=== PATIENT | female | born 1985 | race Caucasian/White ===

== ENCOUNTER 2024-09-04 08:53 | Outpatient (CLI) | payer MEDICAID, SELFPAY ==
--- NOTE | 2024-09-04 08:57 | CT_ITS ---
APPROVED REPORT Clinical Manager Home Care: CLINICAL INDICATION Chest Pain TECHNIQUE Image Acquisition: A 128 slice MDCT scanner (Cimetrixa View) was used for data acquisition. A noncontrast coronary calcium scan was performed. A CT attenuation threshold of 130 Hounsfield units (HU) was used for the detection of calcium in contiguous voxels of 1 sq mm in area to be counted as individual lesions. Bolus tracking in the ascending aorta with a threshold of 180 HU was performed. Immediately afterwards, ECG synchronized cardiac CT was then performed from the cardiac base to apex using retrospective gating with ECG tube current modulation. A total of 85 mL of Isovue 370 mg/mL contrast medium was administered at 5 mL/sec followed by a saline flush using a biphasic injection protocol. A tube voltage of 120 KVp was used. The patient received the following medications prior to the cardiac CT. 150 mg of oral metoprolol 15 mg of oral ivabradine 0.4 mg of sublingual nitroglycerin The average heart rate at the time of acquisition was 58 bpm and regular. Image Reconstruction Transaxial images were reconstructed at 0.67 mm slide thickness. Data was reviewed interactively on an advanced workstation capable of 2 and 3-dimensional displays in all conventional reconstruction formats, including multiplanar reformations, maximum intensity projections, curved multiplanar reformations, and volume rendered reconstructions. When applicable, selected routine images describing the relevant coronary anatomy and pathology were saved and sent to PACS. Complications None Technical Quality Overall image quality was good. Coronary artery opacification was adequate. Total DLP (Dose-Length Product) is 1225.4 mGy-cm. The reported value represents the total of one or more individual components during the CT acquisition of this date and at this time, and as such, the same value may appear in more than one CT report depending on the interpreting/reporting physicians. COMPARISON None FINDINGS CT Coronary Calcium Scoring LMA (Left Main Artery) = 0 LAD (Left Anterior Descending) = 0 LCX (Left Coronary Circumflex) = 0 RCA (Right Coronary Artery) = 0 Total Calcium Score = 0 using the AJ-130 method. The interpretation of the calcium heart score is based on the following continuum*: 0 = no calcified plaque detected (risk of coronary artery disease is very low ??? less than 5%) 1-10 = calcium detected in extremely minimal levels (risk of coronary diseases is still low ??? less than 10%) 11-100 = mild levels of plaque detected with certainty (mild or minimal narrowing of heart arteries is likely) 101-400 = definite,at least moderate levels of plaque detected (relatively high risk of a heart attack within 3-5 years) >401-999 = extensive levels of plaque detected (high risk of heart attack, high levels of vascular disease are present, high likelihood of at least one significant coronary narrowing) *The calcium heart score quantifies the burden of coronary calcification/plaque in the coronary arteries. The calcium heart score is not able to evaluate the presence or burden of non-calcified (i.e. soft) plaque. There is no identifiable calcification in the aortic valve, mitral annulus or mitral valve, pericardium, or myocardium. Coronary CT Angiography The coronary arterial system is right dominant. Quantitative Stenosis Grading: Left Main (LM): The left main originates normally from the left sinus of Valsalva. The LM bifurcates into the left anterior descending artery and left circumflex artery. The LM is patent with no evidence of atherosclerosis. Left Anterior Descending (LAD) and Diagonal Branches: The LAD gives off 3 diagonal branch(es). The LAD and its branches are patent with no evidence of atherosclerosis. 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 Left Circumflex (LCX) and Obtuse Marginals (OM): The LCX gives off 1 Obtuse Marginal (OM) branch(es). The LCX and its branches are patent with no evidence of atherosclerosis. Right Coronary Artery (RCA): The RCA originates normally from the right sinus of Valsalva. The RCA gives off a posterior descending artery (PDA) and posterolateral (PL) branches. The RCA and its branches are patent with no evidence of atherosclerosis. Non-Coronary Cardiac Findings: Analysis of the left ventricular (LV) structure and function was performed after 3-D reconstruction of the LV from axial images, with user-corrected automatic contouring for assessment of LV volumes and user-defined reconstruction from oblique planes for measurement of 3-D cardiac structure and function. -The left ventricle systolic function is low-normal. -There is no left atrial appendage filling defect. Two right pulmonary veins and two left pulmonary veins drain normally into the left atrium. -No pericardial thickening or calcification. -Central and branch pulmonary arteries in the [id number]-gu-[id number] are unremarkable. -Thoracic aorta within the visualized thoracic aortic-branches in the [id number]-gp-bvsh is unremarkable. Extracardiac Structures No significant extra-cardiac findings. Note, however, that this study is focused on the cardiac findings. IMPRESSION -Absence of coronary calcification with an Agatston score = 0 using the AJ-130 method. -No evidence of significant flow-limiting atherosclerosis of the coronary arteries. -Mid LAD myocardial bridge present, measuring approximately 2 cm in length and 1.5 cm in depth. -CAD-RADS 0. Management recommendations per ACC/AHA guidelines*, as clinically appropriate. - Low-normal LV systolic function on CCTA. Correlation with new or recent TTE is suggested. *Recommendations: CAD RADS 0: Reassurance. Consider non-atherosclerotic causes of chest pain. CAD RADS 1: Consider non-atherosclerotic causes of chest pain. Consider preventive therapy and risk factor modification. CAD RADS 2: Consider non-atherosclerotic causes of chest pain. Consider preventive therapy and risk factor modification, particularly for patients with nonobstructive plaque in multiple segments. CAD RADS 3: Consider further functional testing. Consider symptom-guided anti-ischemic and preventive pharmacotherapy as well as risk factor modification per published guideline statements. CAD RADS 4A: Consider further functional testing or invasive coronary angiography with revascularization per published guideline statements. Consider symptom-guided anti-ischemic and preventive pharmacotherapy as well as risk factor modification per published guideline statements. CAD RADS 4B: Invasive coronary angiography recommended with revascularization per published guideline statements. Consider symptom-guided anti-ischemic and preventive pharmacotherapy as well as risk factor modification per published guideline statements. CAD RADS 5: Consider invasive angiography and/or viability assessment with revascularization per published guideline statements. Consider symptom-guided anti-ischemic and preventive pharmacotherapy as well as risk factor modification per published guideline statements. CRITICAL RESULT None COMMUNICATION Per this written report The coronary and cardiac findings of this CCTA were reviewed, reported, and signed by Tushar Archuleta MD (Rheumatology Nurse) Conclusion Electronically signed by : Geneva Archuleta MD 09/04/2024 13:11:59
--- OUTSIDE RECORDS SUMMARY | 2024-09-04 08:57 | XMS_ITS | Data Portability ---
Author Organization [place] - [facility] - [facility] Address [address] [place] [address] Assessment Encounter Date Assessment Date Assessment LastModified by Organization Details LastModified Time 11/14/2023 11/14/2023 Patient Education was printed, I have reviewed the Past Medical, Family, and Social Histories along with ROS and all orders in today's record, and have noted any changes. Medications, charts and records reviewed in full today. - EKG today reveals sinus rhythm with a rate of 74 beats per minute, nonspecific T-wave abnormality, incomplete right bundle-branch block, abnormal EKG. Blood pressure 100/68, heart rate 86, weight 127.6 lb. Oxygen saturation 99% on room air. - LAST ECHO: 09/2021 revealed normal LVEF of 55% to 60%. Mild mitral insufficiency. Xjuz-dg-ndisqosf pulmonic insufficiency. LAST HEART CATH: 04/2012 revealed normal coronary arteries, normal LV systolic function, normal LVEDP. - Plan: Defer laboratory studies to PCP. Refills sent to pharmacy. Echocardiogram. Follow-up in 3 to 4 months. - -Continue other current medications. -Continue aggressive risk factor modification. -Recommend LDL less than 100. -Encouraged regular exercise and activity. - This note was dictated using [employer] software. If something is unclear, or does not make sense, please do not hesitate to contact our office at [phone] for clarification. Not available 11/14/2023 18:12:01 02/14/2024 02/14/2024 Patient Education was printed, I have reviewed the Past Medical, Family, and Social Histories along with ROS and all orders in today's record, and have noted any changes. Medications, charts and records reviewed in full today. - blood pressure 110/70, heart rate 77, weight 123.4 lb. Oxygen saturation 99% on room air. - LAST ECHO: 11/2023 revealed an LVEF of 60% with Mild MR. Mild LV chamber dilitation. PAST ECHO: 09/2021 revealed normal LVEF of 55% to 60%. Mild mitral insufficiency. Mwpi-so-zeetzdra pulmonic insufficiency. LAST HEART CATH: 04/2012 revealed normal coronary arteries, normal LV systolic function, normal LVEDP. - Plan: Laboratory studies. EKG at follow-up. Follow-up in six months. - -Continue other current medications. -Continue aggressive risk factor modification. -Recommend LDL less than 100. -Encouraged regular exercise and activity. - This note was dictated using [employer] software. If something is unclear, or does not make sense, please do not hesitate to contact our office at [phone] for clarification. Not available 02/14/2024 16:38:17 08/20/2024 08/20/2024 Patient Education was printed, I have reviewed the Past Medical, Family, and Social Histories along with ROS and all orders in today's record, and have noted any changes. Medications, charts and records reviewed in full today. - blood pressure 116/64, heart rate 69, weight 136.2 lb. Oxygen saturation is 99% on room air. EKG today reveals sinus rhythm with a rate of 69 beats per minute, nonspecific T-wave abnormality, poor R-wave progression, right atrial enlargement, abnormal EKG. - LAST ECHO: 11/2023 revealed an LVEF of 60% with Mild MR. Mild LV chamber dilitation. PAST ECHO: 09/2021 revealed normal LVEF of 55% to 60%. Mild mitral insufficiency. Ejot-ki-jgdnkkgl pulmonic insufficiency. LAST HEART CATH: 04/2012 revealed normal coronary arteries, normal LV systolic function, normal LVEDP. - Plan: Laboratory studies. Chest x-ray. CTA coronary arteries. Refill furosemide. Follow-up in 6 to 8 weeks. - Tobacco cessation and counseling provided today, total time 5 minutes. The patient has current tobacco dependence. Discussed health ramifications of tobacco use, including increases in risk of all-cause morbidity and mortality. Recommend tobacco cessation. The patient is willing to attempt tobacco cessation. Discussed nicotine replacement therapy, varenicline, and bupropion including risks, benefits, alternatives, and potential side effects. Discussed the benefits of tobacco cessation including reduced morbidity and mortality. Recommend setting a quit date. - -Continue other current medications. -Continue aggressive risk factor modification. -Recommend LDL less than 100. -Encouraged regular exercise and activity. - This note was dictated using [employer] software. If something is unclear, or does not make sense, please do not hesitate to contact our office at [phone] for clarification. Not available 08/20/2024 12:00:18 09/02/2024 09/02/2024 Patient Education was printed, I have reviewed the Past Medical, Family, and Social Histories along with ROS and all orders in today's record, and have noted any changes. Medications, charts and records reviewed in full today. - EKG today reveals sinus rhythm with a rate of 86 beats per minute, incomplete right bundle-branch block, nonspecific T-wave abnormality, poor R-wave progression, right atrial enlargement, abnormal EKG. Blood pressure 118/78, heart rate is 86, weight 130.8 lb. Oxygen saturation 99% on room air. Weight is down 6 lb since last visit. - LAST ECHO: 11/2023 revealed an LVEF of 60% with Mild MR. Mild LV chamber dilitation. PAST ECHO: 09/2021 revealed normal LVEF of 55% to 60%. Mild mitral insufficiency. Cuaz-uc-vkhidngy pulmonic insufficiency. LAST HEART CATH: 04/2012 revealed normal coronary arteries, normal LV systolic function, normal LVEDP. - Plan: Nitroglycerin, safety education provided. CTA coronary arteries. Follow-up in 4 to 5 weeks. - -Continue other current medications. -Continue aggressive risk factor modification. -Recommend LDL less than 100. -Encouraged regular exercise and activity. - This note was dictated using [employer] software. If something is unclear, or does not make sense, please do not hesitate to contact our office at [phone] for clarification. Not available 09/02/2024 13:13:28 Plan of Treatment Reminders Order Date Submit Date Provider Last Modified By Organization Details Last Modified Time Details Appointments OV EST 30 2024 11:00A M LEONARDO YEUNG, SALES ANALYTICS MANAGER, S Not available Not available Not available OV EST 30 2024 10:30A M LEONARDO YEUNG NP, S Not available Not available Not available Lab CBC w/ auto diff 2024 025 [facility] (Registration ), [address], [place], [address], 08/22/2024 10:59:06 CMP, serum or plasma 2024 025 [facility] (Registration ), [address], [place], [address], 08/22/2024 11:41:11 magnesium , serum or plasma 2024 025 [facility] (Registration ), [address], [place], [address], 08/22/2024 11:41:13 lipid panel w/ direct LDL, serum [address] (Registration ), [address], [place], [address], 08/27/2024 08:14:04 CBC w/ auto diff [address] (Registration ), [place], [address], 02/21/2024 08:18:16 BMP, serum or plasma [address] (Registration ), [place], [address], 02/21/2024 08:18:25 magnesium , serum or plasma [address] (Registration ), [place], [address], 02/21/2024 08:18:34 Referral None recorded. Procedures None recorded. Surgeries None recorded. Imaging CT, angiogram , coronary arteries, w/wo contrast 2024 025 [facility] (Scheduling), [address], [place], [address], 09/02/2024 13:30:34 electroca rdiogram 2024 025 [email or web address], [address] [place] [address] [address], [place], [address], 09/02/2024 13:12:35 CT, angiogram , coronary arteries, w/wo contrast - Patient doesnt have insurance . Patient is self pay [address] (Scheduling), [address], [place], [address], 08/27/2024 08:13:56 electroca [facility]diogram 2024 [facility]25 [email or web address], [address] [place] [address] [address], [place], [address], 08/20/2024 11:49:36 XR, chest, 2 view [address] (Registration ), [facility] [address], [place], [address], 09/03/2024 07:41:32 electroca rdiogram 2023 024 [email or web address], [address] [place] [address] [address], [place], [address], 11/14/2023 16:30:00 US, echocardi ogram, transthor acic, complete, w/ color flow [email or web address] (Centralized Scheduling), [address] , [place], [address], 11/28/2023 10:40:04 Medication Orders nitroglyc oswald 0.4 mg sublingua l tablet [address] [facility] [place] [id number], [address] , [place], [address], 09/02/2024 13:12:39 furosemid e 20 mg tablet 2024 025 [email or web address] [id number], [address] , [place], [address], 08/20/2024 11:49:52 Kenalog 10 mg/mL suspensio n for injection [address] [id number], [address] [place] [address] , [place], [address], 04/04/2024 08:59:30 bupivacai ne HCl 0.5 % (5 mg/mL) injection solution [address] [id number], [address] [place] [address] , [place], [address], 04/04/2024 08:59:30 hydroxyzi ne HCl 25 mg tablet 2023 024 [facility] [id number], [address] [place] [address] , [place], [address], 11/14/2023 18:10:06 furosemid e 20 mg tablet [address] [facility] [place] [id number], [address] [place] [address] , [place], [address], 11/14/2023 18:09:12 Patient TargetsNo targets recorded. Patient Instructions Encounter Date Encounter Id Patient Instructions Last Modified By Organization Details Last Modified Time 08/20/2024 [id number] smoking cessatio n counseling, greater than 3 minutes up to 10 minutes* [email or web address] Not available 08/27/2024 08:14:11 Reason for Referral None Reported. Results Created Date Observation Date Name Description Value Unit Range Abnormal Flag Note LastModifiedBy Organization Detail LastModifiedTime 08/23/1908/22/2024 CBC W/AUT O DIFFE RENTI AL note SEE NOTE Order ing Provi fuentes: Toi Gonzalez is RESEARCH MANAGEMENT ASSOCIATE Not Available [address] , [place], [address], 08/22/2024 10:59:06 08/23/19 25 08/22/2024 CBC W/AUT O DIFFE RENTI AL white blood cell 7.9 10e3/ uL 4.5-13 .0 normal Not Available [place] [address], [place], [address], 08/22/2024 10:59:06 08/23/19 25 08/22/2024 CBC W/AUT O DIFFE RENTI AL red blood cell 4.59 10e6/ uL 3.80-5 .10 normal Not Available [place] [address], [place], [address], 08/22/2024 10:59:06 08/23/19 25 08/22/2024 CBC W/AUT O DIFFE RENTI AL hemoglobin 13.1 g/dL 11.5-1 5.3 normal Not Available [place] [address], [place], [address], 08/22/2024 10:59:06 08/23/19 25 08/22/2024 CBC W/AUT O DIFFE RENTI AL hematocrit 39.2 % 34.0-4 6.0 normal Not Available [address], [place], [address], 08/22/2024 10:59:06 08/23/19 25 08/22/2024 CBC W/AUT O DIFFE RENTI AL mean cell volume 85 fL 78.0-9 8.0 normal Not Available [address] [place], [place], [address], 08/22/2024 10:59:06 08/23/19 25 08/22/2024 CBC W/AUT O DIFFE RENTI AL mean cell HGB 28.5 pg 25.0-3 5.0 normal Not Available [address] [place], [place], [address], 08/22/2024 10:59:06 08/23/19 25 08/22/2024 CBC W/AUT O DIFFE RENTI AL mean cell HGB concentratio n 33.4 g/dL 31.0-3 6.0 normal Not Available [address] [place], [place], [address], 08/22/2024 10:59:06 08/23/19 25 08/22/2024 CBC W/AUT O DIFFE RENTI AL red cell distribution width 13.7 % 11.0-1 5.0 normal Not Available [address] [place], [place], [address], 08/22/2024 10:59:06 08/23/19 25 08/22/2024 CBC W/AUT O DIFFE RENTI AL platelet count 244 10e3/ uL 150-40 0 normal Not Available [place] [address], [place], [address], 08/22/2024 10:59:06 08/23/19 25 08/22/2024 CBC W/AUT O DIFFE RENTI AL immature granulocyte % 0 0-1 normal Not Available [place] [address], [place], [address], 08/22/2024 10:59:06 08/23/19 25 08/22/2024 CBC W/AUT O DIFFE RENTI AL neutrophil % 67 % 35-75 normal Not Available [address] [place], [place], [address], 08/22/2024 10:59:06 08/23/19 25 08/22/2024 CBC W/AUT O DIFFE RENTI AL lymphocyte % 23 % 10-50 normal Not Available [address] , [place], [address], 08/22/2024 10:59:06 08/23/19 25 08/22/2024 CBC W/AUT O DIFFE RENTI AL monocyte % 7 % 0-15 normal Not Available [address] [place], [place], [address], 08/22/2024 10:59:06 08/23/19 25 08/22/2024 CBC W/AUT O DIFFE RENTI AL eosinophil % 2 % 0-5 normal Not Available [address] [place], [place], [address], 08/22/2024 10:59:06 08/23/19 25 08/22/2024 CBC W/AUT O DIFFE RENTI AL basophil % 1 % 0-5 normal Not Available [place] [address], [place], [address], 08/22/2024 10:59:06 08/23/19 25 08/22/2024 CBC W/AUT O DIFFE RENTI AL immature granulocyte # 0.01 x1000 /uL 0-0.05 normal Not Available [address] [place], [place], [address], 08/22/2024 10:59:06 08/23/19 25 08/22/2024 CBC W/AUT O DIFFE RENTI AL neutrophil # 5.30 x1000 /uL 1.50-8 .00 normal Not Available [address] [place], [place], [address], 08/22/2024 10:59:06 08/23/19 25 08/22/2024 CBC W/AUT O DIFFE RENTI AL lymphocyte # 1.81 x1000 /uL 1.20-5 .20 normal Not Available [address] [place], [place], [address], 08/22/2024 10:59:06 08/23/19 25 08/22/2024 CBC W/AUT O DIFFE RENTI AL monocyte # 0.54 x1000 /uL 0.40-0 .90 normal Not Available [place] [address], [place], [address], 08/22/2024 10:59:06 08/23/19 25 08/22/2024 CBC W/AUT O DIFFE RENTI AL eosinophil # 0.18 x1000 /uL 0.00-0 .50 normal Not Available [place] [address], [place], [address], 08/22/2024 10:59:06 08/23/19 25 08/22/2024 CBC W/AUT O DIFFE RENTI AL basophil # 0.08 x1000 /uL 0.00-0 .30 normal Not Available [place] [address], [place], [address], 08/22/2024 10:59:06 08/23/19 25 08/22/2024 CBC W/AUT O DIFFE RENTI AL NRBC automated 0.0 /100_ WBC Not Available [address] [place], [place], [address], 08/22/2024 10:59:06 08/23/19 25 08/22/2024 CBC W/AUT O DIFFE RENTI AL performing lab SEE NOTE ML - [facility] R [address] [facility] [address] Not Available [place] [address], [place], [address], 08/22/2024 10:59:06 08/23/19 25 08/22/2024 COMP METAB OLIC PANEL note SEE NOTE Order ing Provi fuentes: Toi Gonzalez is RESEARCH MANAGEMENT ASSOCIATE Not Available [address] [place], [place], [address], 08/22/2024 11:41:11 08/23/19 25 08/22/2024 COMP METAB OLIC PANEL sodium 136 mmol/ L 136-14 5 normal Not Available [address] [place], [place], [address], 08/22/2024 11:41:11 08/23/19 25 08/22/2024 COMP METAB OLIC PANEL potassium 4.1 mmol/ L 3.5-5. 1 normal Not Available [place] [address], [place], [address], 08/22/2024 11:41:11 08/23/19 25 08/22/2024 COMP METAB OLIC PANEL chloride 103 mmol/ L 98-107 normal Not Available [place] [address], [place], [address], 08/22/2024 11:41:11 08/23/19 25 08/22/2024 COMP METAB OLIC PANEL carbon dioxide 27 mmol/ L 24-33 normal Not Available [place] [address], [place], [address], 08/22/2024 11:41:11 08/23/19 25 08/22/2024 COMP METAB OLIC PANEL anion gap 10.1 mmol/ L 10-20 normal Not Available [address] [place], [place], [address], 08/22/2024 11:41:11 08/23/19 25 08/22/2024 COMP METAB OLIC PANEL glucose 103 mg/dL 70-99 high Not Available [address] [place], [place], [address], 08/22/2024 11:41:11 08/23/19 25 08/22/2024 COMP METAB OLIC PANEL blood urea nitrogen 11 mg/dL 7-18 normal Not Available [address] [place], [address], 08/22/2024 11:41:11 08/23/19 25 08/22/2024 COMP METAB OLIC PANEL creatinine 0.70 mg/dL 0.55-1 .02 normal Not Available [address] [place], [address], 08/22/2024 11:41:11 08/23/1908/22/2024 COMP METAB OLIC PANEL GFR (estimated) 114 mL/mi n >60 normal [IM JOSE NT]: The 2020 CKD-E PI equat ion is now the recom imtiaz d stand dwayne. This versi on does not inclu de race, as do the 2008 and 2011 CKD-E PI creat inine and creat inine -cyst atin C equat ions. Plebeck e note that the eGFR now repor ugo is gener ated by the new 2020 CKD-E PI equat ion, which decre ases the eGFR for black s by up to 10% and incre ases the eGFR for non-b lacks by up to 10% in monae rison to the old equat ion. To monae re a legac y eGFR to a curre nt value , a 2009 CKD-E PI calcu lator is easil y searc hable on the inter net. Calcu lated GFR: This calcu lated GFR is advoc ated by the Natio nal Kidne y Found ation to be used as an indic ator of Chron ic Kidne y Disea se (CKD) . 5 Stage s of Chron ic Kidne y Disea se. Stage 1 90 mL/mi n or more Healt hy kidne ys or Kidne y damag e with bella l or high GFR detai ls Stage 2 60 to 89 mL/mi n Kidne y damag e and mild decre ase in GFR detai ls Stage 3 30 to 59 mL/mi n Moder ate decre ase in GFR detai ls Stage 4 15 to 29 mL/mi n Sever e decre ase in GFR detai ls Stage 5 Less than 15 mL/mi n On dialy sis or Kidne y failu re Patie nt's clini ryan statu s must be consi dered for the care of your patie nt. Not Available [address] , [place], [address], 08/22/2024 11:41:11 08/23/19 25 08/22/2024 COMP METAB OLIC PANEL BUN/creatini ne ratio 15 12-20 normal Not Available [address] , [place], [address], 08/22/2024 11:41:11 08/23/19 25 08/22/2024 COMP METAB OLIC PANEL total protein 7.0 g/dL 6.4-8. 2 normal Not Available [address] [place], [place], [address], 08/22/2024 11:41:11 08/23/19 25 08/22/2024 COMP METAB OLIC PANEL albumin 4.2 g/dL 3.4-5. 0 normal Not Available [address] , [place], [address], 08/22/2024 11:41:11 08/23/19 25 08/22/2024 COMP METAB OLIC PANEL globulin 2.8 g/dL 1.5-4. 0 normal Not Available [address] [place], [place], [address], 08/22/2024 11:41:11 08/23/19 25 08/22/2024 COMP METAB OLIC PANEL albumin/glob ulin ratio 1.5 0.5-2. 0 normal Not Available [address] , [place], [address], 08/22/2024 11:41:11 08/23/19 25 08/22/2024 COMP METAB OLIC PANEL calcium 9.3 mg/dL 8.5-10 .1 normal Not Available [address] , [place], [address], 08/22/2024 11:41:11 08/23/19 25 08/22/2024 COMP METAB OLIC PANEL osmolality serum calculated 270 mOsm/ kg 272-28 8 low Not Available [address] , [place], [address], 08/22/2024 11:41:11 08/23/1908/22/2024 COMP METAB OLIC PANEL bilirubin total 0.7 mg/dL 0.2-1. 0 normal Use of this assay is not recom imtiaz d for patie nts under going treat ment with Eltro mbopa g due to the poten tial for false ly eleva ugo resul ts. Not Available [address] , [place], [address], 08/22/2024 11:41:11 08/23/1908/22/2024 COMP METAB OLIC PANEL SGOT/AST 18 U/L 15-37 normal Not Available [address] , [place], [address], 08/22/2024 11:41:11 08/23/19 25 08/22/2024 COMP METAB OLIC PANEL SGPT/ALT 23 U/L 14-59 normal Not Available [address] [place], [address], 08/22/2024 11:41:11 08/23/19 25 08/22/2024 COMP METAB OLIC PANEL alkaline phosphatase total 70 U/L 46-116 normal Not Available [address] , [place], [address], 08/22/2024 11:41:11 08/23/1908/22/2024 COMP METAB OLIC PANEL performing lab SEE NOTE ML - [facility] [address] [facility] [address] Not Available [address] , [place], [address], 08/22/2024 11:41:11 08/23/1908/22/2024 LIPID PANEL note SEE NOTE Order ing Provi fuentes: Toi Gonzalez is RESEARCH MANAGEMENT ASSOCIATE Not Available [address] , [place], [address], 08/22/2024 11:41:12 08/23/1908/22/2024 LIPID PANEL triglyceride s 59 mg/dL < 150 normal Natio nal Marcela stero l Educa tion Progr am (NCEP ) Guide lines : Bella l < 150 mg/dL Borde rline 150 - 199 mg/dL High 200 - 499 mg/dL Very High >or= 500 mg/dL Not Available [address] , [place], [address], 08/22/2024 11:41:12 08/23/1908/22/2024 LIPID PANEL cholesterol 166 mg/dL < 200 normal Natio nal Marcela stero l Educa tion Progr am (NCEP ) Guide lines : July able < 200 mg/dL Borde rline Risk 200 - 239 mg/dL High Risk >or= 240 mg/dL Not Available [address] , [place], [address], 08/22/2024 11:41:12 08/23/1908/22/2024 LIPID PANEL HDL cholesterol 50 mg/dL > 60 low Natio nal Marcela stero l Educa tion Progr am Adult Treat ment Panel III (NCEP -ATP III) Guide lines : < 40 mg/dl : Low HDL-C holes terol >or= 60 mg/dl : High HDL-C holes terol Not Available [address] , [place], [address], 08/22/2024 11:41:12 08/23/1908/22/2024 LIPID PANEL LDL cholesterol 104 mg/dL < 100 high Natio nal Marcela stero l Educa tion Progr am (NCEP ) Guide lines : Optim al < 100 mg/dL Near/ Above Optim al 100 - 129 mg/dL Borde rline High 130 - 159 mg/dL High 160 - 189 mg/dL Very High >or= 190 mg/dL Not Available [address] , [place], [address], 08/22/2024 11:41:12 08/23/1908/22/2024 LIPID PANEL performing lab SEE NOTE [facility] [address] [facility] [address] Not Available [address] [place], [place], [address], 08/22/2024 11:41:12 08/23/1908/22/2024 MAGNE SIUM note SEE NOTE Order ing Provi fuentes: Toi Gonzalez is RESEARCH MANAGEMENT ASSOCIATE Not Available [address] [place], [place], [address], 08/22/2024 11:41:13 08/23/1908/22/2024 MAGNE SIUM magnesium 1.9 mg/dL 1.8-2. 4 normal Not Available [address] , [place], [address], 08/22/2024 11:41:13 08/23/1908/22/2024 MAGNE SIUM performing lab SEE NOTE ML - [facility] R [address] [facility] [place] [address] Not Available [address] [place], [place], [address], 08/22/2024 11:41:13 06/03/20 24 XR, finge r(s) No observ ation record ed. CARYN Headley [facility] [address] [facility] [address] , [place], [address], 10/16/2023 08:42:41 11/14/19 24 11/14/2023 elect rocar diogr am No observ ation record ed. CARYN Headley [address], [place], [address], 11/14/2023 14:49:25 11/14/19 24 elect rocar diogr am No observ ation record ed. [email or web address] Not Available 2023 15:41:10 12/05/19 24 12/05/2023 elect rocar diogr am No observ ation record ed. [email or web address] Not Available 2023 15:24:02 12/11/19 24 12/11/2023 - ECHO w/spe c/col or flow [place] [facility] Name: [facility]EV[facility] Phys: Zuly CULLEN, [place] [address] : 1985 Age: 38 Sex: F Acct: [id number] Loc: RAD[facility] PHONE #: Exam Date: 2023 Status : DEP CLI FAX #: Rad# [id number] Unit# [id number] Admit Date: 2023 EXAMS: CPT CODE: [id number] ECHO W/SPEC /COLOR FLOW [id number] Reason for study: Dyspne a Left ventri cular diasto le: 5.7 Left ventri cular systol e: 3.8 Septal wall thickn ess: 0.7 Family And Marriage Counsellor ior wall thickn ess: 0.9 Right ventri cular diasto le: 0.8 Left Atrium : 2.7 Aortic root: 2.4 TR veloci ty: 2.33 m/s Impres toshia: 1. Mild left ventri cular chambe r dilata tion with normal left ventri cular systol ic functi on. Estima ugo ejecti on fracti on is 60% 2. No segmen miroslava wall motion abnorm alitie s 3. Normal left atrial and right atrial size 4. Normal right ventri cular size and functi on 5. Normal mitral valve, with mild thicke livan of the mitral valve leafle ts. There is normal mitral valve leafle t mobili ty and functi on. There is mild mitral insuff icienc y 6. Normal aortic valve with no aortic insuff icienc y 7. No perica rdial effusi on 8. Normal aortic root 9. Normal tricus pid valve, with mild tricus pid insuff icienc y. Tricus pid regurg itant jet veloci ty is 2.33 m/s implyi ng a right ventri cular systol ic pressu re of approx imatel y 33 mmHg 10. Pulmon ic valve not well visual ized. There does appear to be mild to modera te pulmon ic insuff icienc y Electr onical ly Signed by DIANA CARUSO MD on 2023 at 1303 Report ed and signed by: DIANA CARUSO MD PAGE 1 Signed Report (AMY NUED) [facility] Name: KENDRA LEVINE [address] [place], [place] [address]a [email or web address] Phys: Zuly CULLEN, [place] [address] : 1985 Age: 38 Sex: F Acct: [id number] Loc: [place] PHONE #: Exam Date: 2023 Status : DEP CLI FAX #: Rad# [id number] Unit# [id number] Admit Date: 2023 EXAMS: CPT CODE: [id number] ECHO W/SPEC /COLOR FLOW [id number] CC: Diana Caruso MD; NO PRIMAR Y CARE PHYSIC IZABELA Dictat ed Date/T smita: 2023 (1303) Techno logist : WES ESPINO Transc ribed Date/T smita: 2023 (1303) Transc riptio nist: DR.LOH BECKI leonardo Signat ure Date/T smita: 2023 (9713) Printe d Date/T smita: 2023 (7826) BATCH NO: N/A PAGE 2 Signed Report CC'ed Logic: Orderi ng Provid er: ZULY ORTIZ Attend ing Provid er: ZULY ORTIZ Referr ing Provid er: ZULY ORTIZ Consul ting Provid er: PHYSIC IZABELA NO [email or web address] , [place], [address], 02/14/2024 12:01:01 08/21/19 elect rocar diogr am No observ ation record ed. [email or web address] [address], [place], [address], 08/20/2024 11:48:35 08/21/19 25 08/20/2024 elect rocar diogr am No observ ation record ed. [email or web address] Not Available 2024 11:35:25 09/03/19 25 elect rocar diogr am No observ ation record ed. CARYN [address], [place], [address], 09/02/2024 11:18:03 09/03/19 25 09/02/2024 elect rocar diogr am No observ ation record ed. [email or web address] Not Available 2024 13:16:42 Result Notes None recorded. Problems Name Problem SNOMED Code Status Onset Date Resolution Date Notes Provider Name and Address Organization Details Recorded Time Mitral valve regurgitation 99174704 Active 2023 LEONARDO YEUNG NP, S [facility],[address], [place], [address], [facility] - [place] [facility] [place] 4 12:04:36 Pulmonic valve regurgitation 89403104 Active 2023 LEONARDO YEUNG NP, S [address] [place] [address],[address], [place], [address], [facility] - [facility] - [place] [facility] [place] 12:04:37 Problem Notes None recorded. Procedures Surgical History Date Name Laterality Status Provider Name and Address Organization Details Recorded Time Abdominal Surgery completed Jimena [place] - [facility] - [place] [facility] [place] 10/16/2023 08:36:18 open heart surgery completed Lewis [place] - [facility] - [place] 11/14/2023 15:32:28 Knee arthroscopy/reji naveen completed Lewis [place] - RICARDANT - [place] 11/14/2023 15:32:39 delivery completed Lewis MALONEY - [place] 11/14/2023 15:33:37 Imaging Results Imaging Date Name Status LastModified by Organization Details LastModified Time 10/16/2023 XR, finger(s) completed CARYN Michelle [address] [place], [address], 10/16/2023 08:42:41 11/14/2023 electrocardiogram completed CARYN Mv [address], [place], [address], 11/14/2023 14:49:25 11/14/2023 electrocardiogram completed Informa tion not available 11/14/2023 15:41:10 12/05/2023 electrocardiogram completed [email or web address] Informa tion not available 12/05/2023 15:24:02 12/11/2023 - ECHO w/spec/color flow completed [email or web address] [facility] [address] [place], [address], 02/14/2024 12:01:01 08/20/2024 electrocardiogram completed [email or web address] [address], [place], [address], 08/20/2024 11:48:35 08/20/2024 electrocardiogram completed [email or web address] Informa tion not available 08/20/2024 11:35:25 09/02/2024 electrocardiogram completed CARYN Mv [facility] [address] [place], [place], [address], 09/02/2024 11:18:03 09/02/2024 electrocardiogram completed Informa tion not available 09/02/2024 13:16:42 Procedure Notes None recorded. Medical Equipment None Reported. Allergies Allergen ID Allergen Name Allergen Category Reaction Reaction Severity Criticality Documentation Date Start Date Code Code System Note Provider Name and Address Organization Details Recorded Time 608050 latex environme nt,medica tion Not available Not available Not available 10/16/2023 65933 91 RxNorm BESSIE Plummer - [facility] & [place] 4 08:36:01 Medications Name Sig Start Date Stop Date Status Note LastModified by Organization Details LastModified Time bupivacaine HCl 0.5 % (5 mg/mL) injection solution Take 5 mg by injection route. 2023 active Not Available Not Available Not Avai lable Kenalog 10 mg/mL suspension for injection Take 10 mg by injection route. 2023 active Not Available Not Available Not Avai lable nitroglyceri n 0.[address] one tablet sublinguall y every 5 minutes as needed for chest pain for three doses. 2024 active Not Available Not Available Not Avai lable sertraline 25 mg tablet active Not Available Not Available Not Available hydroxyzine HCl 25 mg tablet Take 1 tablet every 8 hours by oral route as needed for 30 days. active Not Available Not Available No t Available furosemide 20 mg tablet Take 1 tablet every day by oral route as needed for 30 days. 2024 active Not Available Not Available Not Avai lable hydroxyzine pamoate 25 mg capsule active Not Available Not Available N ot Available Lasix active Not Available Not Availa ble Not Available Vitals Date Recorded Body weight Oxygen saturation Oxygen saturation in Arterial blood by Pulse oximetry Heart rate Systolic blood pressure Diastolic blood pressure Provider Name and Address Organization Details Last Updated DateTime 4 68096.3 9 g 99 % 99 % 86 /min 100 mm[Hg] 68 mm[Hg] Nanci kaur [place] - [facility] & [place] 4 14:48:20 Date Recorded Body height Body mass index (BMI) Body weight Oxygen saturation Oxygen saturation in Arterial blood by Pulse oximetry Heart rate Systolic blood pressure Diastolic blood pressure Provider Name and Address Organization Details Last Updated DateTime 4 152.4 cm 24.1 kg/m2 71884.3 g 99 % 99 % 77 /min 110 mm[Hg] 70 mm[Hg] Beverley Azar BESSIE Pitts [facility] & [place] 4 11:37:07 Date Recorded Body height Body mass index (BMI) Body weight Oxygen saturation Oxygen saturation in Arterial blood by Pulse oximetry Heart rate Systolic blood pressure Diastolic blood pressure Provider Name and Address Organization Details Last Updated DateTime 5 152.4 cm 26.6 kg/m2 89639.2 8 g 99 % 99 % 69 /min 116 mm[Hg] 64 mm[Hg] Caitlyn Marquez BESSIE Pitts [facility] & [place] 5 11:22:18 Date Recorded Body height Body mass index (BMI) Body weight Oxygen saturation Oxygen saturation in Arterial blood by Pulse oximetry Heart rate Systolic blood pressure Diastolic blood pressure Provider Name and Address Organization Details Last Updated DateTime 5 152.4 cm 25.5 kg/m2 04901.8 8 g 99 % 99 % 86 /min 118 mm[Hg] 78 mm[Hg] Caitlyn Jimmy BESSIE Pitts [facility] & [place] 5 11:09:51 Social History Question Answer Notes LastModified by Organizat ion Details LastModified Time Tobacco Smoking Status Current Every Day Smoker Jimena Vasqeuzkrupa ospina BESSIE Pitts [facility] & [place] 10/16/2023 08:36:15 Do You Have An Advance Directive? No [email or web address] Information not available 10/16/2023 What Is Your Level Of Alcohol Consumption? None [email or web address] Information not available 10/16/2023 Are You Blind Or Do You Have Difficulty Seeing? No Information not available 10/16/2023 What Was The Date Of Your Most Recent Tobacco Screening? 10/16/2023 [email or web address] Information not available 10/16/2023 Are You Passively Exposed To Smoke? Yes [email or web address] Information not available 10/16/2023 Do You Or Have You Ever Used Smokeless Tobacco? Never Used Smokeless Tobacco [email or web address] Information not available 10/16/2023 How Much Tobacco Do You Smoke? 1 PPD [email or web address] Information not available 11/14/2023 Do You Feel Stressed (tense, Restless, Nervous, Or Anxious, Or Unable To Sleep At Night)? [id number] [email or web address] Information not available 10/16/2023 Do You Use Any Illicit Or Recreational Drugs? No History Of 14 Years Ago, Documented By Patient In The [employer] Packet [email or web address] Information not available 11/14/2023 How Many Years Have You Smoked Tobacco? 20 [email or web address] Information not available 10/16/2023 Sex: Unknown Functional Status Question Answer Note LastModified by Organization D etails LastModified Time What is your exercise level? None [email or web address] Information not available 10/16/2023 Mental Status None recorded. Family History Nothing Reported. Medical History Condition Response Swelling Y Heart Disease Y Chest Pain Y Shortness of Breath Y Dizziness or Fainting Y Gynecological History Statement/Question Response Current Control Method Tubal Ligat ion Sexually Active? Y Obstetrics History GPAL:G 0 P 0 0 0 0 Past Encounters Encounter ID Performer Location Encounter Start Date Encounter Closed Date Diagnosis/Indication Diagnosis SNOMED-CT Code Diagnosis ICD10 Code Diagnosis Note [id number] DO MICHELLE DESHPANDE [facility] [address] [place] [address] 10/16/2023 08:30:20 10/16/2023 09:10:14 Pain in left thumb 0840457711 126844 M79.645 Carpal naty felipa syndrome of left wrist 3747528629 08717 G56.02 Trigger th umb of left hand 8831506560 17564 M65.174 [id number] LEONARDO YEUNG NP, S [place] [address] [place] [address] 11/14/2023 13:56:18 11/14/2023 15:07:17 Essential hypertension 96681271 I10 Dyspnea on exertion 6084 5006 R06.09 Edema 452933056 R60.9 Atrial septal defect 701 27719 Q21.10 Anxiety 34666674 F41.9 Pulmonic v alve regurgitation 35753316 I37.1 [id number] LEONARDO YEUNG NP, S [place] [address] [place] [address] 02/14/2024 11:13:42 02/14/2024 12:08:23 Essential hypertension 89224920 I10 Atrial septal defect 701 75220 Q21.10 Pulmonic v alve regurgitation 78955553 I37.1 Mitral adia ve regurgitation 47247186 I34.0 [id number] [facility] [address] [place] [address] 04/03/2024 15:16:38 04/03/2024 15:36:38 Trigger thumb of left hand 3011775876 66873 M65.300 [id number] LEONARDO YEUNG NP, S [place] [address] [place] [address] 08/20/2024 11:13:57 08/20/2024 11:50:21 Edema 240506646 R60.9 Dyspnea on exertion 6084 5006 R06.02 Atypical angina 26794484 2 I20.89 Cigarette smoker 3225178 7 F17.210 Mitral adia ve regurgitation 23224429 I34.0 Pulmonic v alve regurgitation 46077387 I37.1 Essential hypertension 21318033 I10 Atrial septal defect 701 12597 Q21.10 [id number] LEONARDO YEUNG NP, S [place] [address] [place] [address] 09/02/2024 10:32:43 09/02/2024 12:10:49 Dyspnea 820434908 R06.02 Edema 230508188 R60.9 Dyspnea on exertion 6084 5006 R06.02 Atypical angina 23444538 2 I20.89 Cigarette smoker 4073999 7 F17.210 Mitral adia ve regurgitation 45424393 I34.0 Pulmonic v alve regurgitation 42028630 I37.1 Essential hypertension 53962360 I10 Atrial septal defect 701 80887 Q21.10 Health Concerns Section Related Observation LastModified by Organization Detai ls LastModified Time None Recorded Concern Status LastModified by Organization Details LastModified Time None Recorded Advance Directives Directive N: Payers Encounter Date Sequence Insurance Name Policy Number Policy [place] Covered Member ID [place] Member ID Guarantor Name 11/14/2023 1 [id number] Chen Mims [place] [id number] Chen B [place] 02/14/2024 1 [id number] Chen B [place] [id number] Chen B [place] 04/03/2024 1 [id number] Chen B [place] [id number] Chen B [place] 08/20/2024 1 *SELF PAY* Sa hali B [place] 09/02/2024 1 [facility] (MEDICAID REPLACEMENT - HMO) Chen B [place] [id number] Chen B [place] Notes Date Note Type Note Provider Name and Address Organization Details Recorded Time 11/14/2023 text/html Chen is a 38-year-old female who presents today in follow-up. The patient has a history significant for mitral insufficiency, pulmonic insufficiency, hypertension, atrial septal defect, and anxiety. The patient was lost to follow-up after our most recent visit in 2021. No records are currently available from that office visit. The patient returns today requesting refills. The patient has intermittent, primarily exertional shortness of breath which is mild and chronic. This is not progressed in any way according to the patient. The patient has experience some intermittent, primarily dependent lower extremity swelling. No other complaints or concerns. LEONARDO YEUNG NP, S [address] [facility],[address], [place], [address], [place] - [facility] - [place] [facility] [place] 11/14/2023 18:12:19 02/14/2024 text/html Chen is a 38-year-old female who presents today in follow-up. The patient has a history significant for mitral insufficiency, pulmonic insufficiency, hypertension, atrial septal defect, and anxiety. Since our last visit, the patient had an echocardiogram that revealed normal LVEF with mild mitral insufficiency and an RVSP of 33 mm Hg. Vseg-cn-wplazgem pulmonary insufficiency. No significant changes from prior. The patient did go to the emergency department on 01/16/2024 where she tested positive for COVID-19, and was found to be dehydrated, with orthostatic hypotension. The patient indicates that she has since recovered and is using the furosemide less frequently. Her swelling has improved overall since our last visit. The patient has no other complaints or concerns. No follow-up laboratory studies after her emergency department visit. LEONARDO YEUNG NP, S [address] [place] [address],[address], [place], [address], [place] - [facility] - [place] [facility] [place] 02/14/2024 16:40:25 04/03/2024 text/html 10/16/2023-Left ca rpal tunnel, left thumb A1 shira was injected and effective.She would like repeat injection. She would also like to make you aware that the knot has enlarged some to the left hand between the thumb and index finger. CHE7 ANA DO OLY [address], [place], [address], [place] - [facility] - [place] [facility] [place] 04/04/2024 09:02:14 08/20/2024 text/html Chen is a 38-year-old female who presents today in follow-up. The patient has a history significant for mitral insufficiency, pulmonic insufficiency, hypertension, atrial septal defect, and anxiety. Since our last visit, the patient did not have her laboratory studies completed. The patient does report that she has been having more, intermittent, exertional shortness of breath, that generally improves with rest. The patient reports that walking up the stairs from her basement, one flight, will lead to her being short of breath for approximately 5 minutes. The patient had attempted to quit smoking, and started the use of electronic cigarettes and vaping. The patient noticed that this makes her shortness of breath worse, so she switched back to cigarettes. The patient has been down to approximately four cigarettes per day, although this has increased due to stress. The patient has some minor chest tightness which is vague, and poorly characterized. The patient has intermittent, primarily dependent lower extremity swelling that worsens throughout the day and generally improves with elevation and with diuretic therapy. The patient occasionally uses furosemide 20 mg without known side effects or adverse drug reactions. No other complaints or concerns. LEONARDO YEUNG NP, S [address] [place] [address],[address], [place], [address], [facility] - [facility] & [place] 08/20/2024 12:00:57 09/02/2024 text/html Chen is a 38-year-old female who presents today in follow-up. The patient has a history significant for mitral insufficiency, pulmonic insufficiency, hypertension, atrial septal defect, and anxiety. Since our last visit, the patient did not have her CTA of the coronary arteries. The patient continues to have intermittent episodes of substernal chest tightness. The patient reports one episode yesterday that resolved at rest and began when walking with her children during an egg [place]. The patient reports intermittent, primarily exertional shortness of breath improves with rest. The patient also reports occasional dizziness. The patient reports profound fatigue despite adequate rest. Occasional lower extremity swelling which has improved. No other complaints or concerns. LEONARDO YEUNG NP, S [address] [place] [address],[address], [place], [address], [place] [facility] & [place] 09/02/2024 13:17:11 OBGyn Episode No OBEpisode recorded.
--- OUTSIDE RECORDS SUMMARY | 2024-09-04 08:57 | XMS_ITS | Continuity of Care Document ---
Author Organization [place] - [facility] - [place] & [place], [facility] Heart Address [address] [facility] [place] [address] Assessment Encounter Date Assessment Date Assessment LastModified by Organization Details LastModified Time 09/02/2024 09/02/2024 Patient Education was printed, I [...] of 55% to 60%. Mild mitral insufficiency. Qmvi-ia-tsvzxf te pulmonic insufficiency. LAST HEART CATH: 04/2012 revealed normal coronary arteries, normal LV systolic function, normal LVEDP. - Plan: Nitroglycerin, safety education provided. CTA coronary arteries. Follow-up in 4 to 5 weeks. - -Continue other current medications. -Continue aggressive risk factor modification. -Recommend LDL less than 100. -Encouraged regular exercise and activity. - This note was dictated using Daily Pic software. If something is unclear, or does not make sense, please do not hesitate to contact our office at [phone] for clarification. [email or web address] Not available 09/02/2024 13:13:28 Plan of Treatment Reminders Order Date Submit Date Provider Last Modified By Organization Details Last Modified Time Details Appointments OV EST 30 2024 11:00A M LEONARDO YEUNG NP, S Not available Not available Not available OV EST 30 2024 10:30A M LEONARDO YEUNG NP, S Not available Not available Not available Lab None recorded. Referral None recorded. Procedures None recorded. Surgeries None recorded. Imaging CT, angiogram , coronary arteries, w/wo contrast 2024 025 [facility] ([facility]), [address], [place], [address], 09/02/2024 13:30:34 [facility]ca rdiogram 2024 [facility]25 [email or web address] [address], [place], [address], 09/02/2024 13:12:35 Medication Orders nitroglyc oswald 0.4 mg sublingua l tablet 2024 025 [facility] [id number], [address] [place] [address] , [place], [address], 09/02/2024 13:12:39 Patient TargetsNo targets recorded. Patient InstructionsNo instructions recorded. Reason for Referral None Reported. Results Created Date Observation Date Name Description Value Unit Range Abnormal Flag Note LastModifiedBy Organization Detail LastModifiedTime 08/21/19 elect rocar diogr am No observ ation record ed. [email or web address] [address], [place], [address], 08/20/2024 11:48:35 08/21/1908/20/2024 elect rocar diogr am No observ ation record ed. [email or web address] Not Available 2024 11:35:25 09/03/19 elect rocar diogr am No observ ation record ed. CARYN [address], [place], [address], 09/02/2024 11:18:03 09/03/19 25 09/02/2024 rafaela galvan am No observ ation record ed. [email or web address] Not Available 2024 13:16:42 Result Notes None recorded. Problems Name Problem SNOMED Code Status Onset Date Resolution Date Notes Provider Name and Address Organization Details Recorded Time Mitral valve regurgitation 71409135 Active 2023 LEONARDO YEUNG NP, [address], [place], [address], [place] - [facility] - [place] 4 12:04:36 Pulmonic valve regurgitation 64368882 Active 2023 LEONARDO YEUNG NP, [address], [place], [address], [place] - [facility] - [place] 4 12:04:37 Problem Notes None recorded. Procedures Surgical History Date Name Laterality Status Provider Name and Address Organization Details Recorded Time Abdominal Surgery completed Jimena [place] - [facility] - [place] 10/16/2023 08:36:18 open heart surgery completed Lewis [place] - [facility] - [place] 11/14/2023 15:32:28 Knee arthroscopy/reji naveen completed Lewis [place] - [facility] - [place] 11/14/2023 15:32:39 delivery completed Lewis Pitts [facility] - [place] & [place] 11/14/2023 15:33:37 Imaging Results Imaging Date Name Status LastModified by Organization Details LastModified Time 09/02/2024 electrocardiogram completed CARYN [address], [place], [address], 09/02/2024 11:18:03 Procedure Notes None recorded. Medical Equipment None Reported. Allergies Allergen ID Allergen Name Allergen Category Reaction Reaction Severity Criticality Documentation Date Start Date Code Code System Note Provider Name and Address Organization Details Recorded Time 294370 latex environme nt,medica tion Not available Not available Not available 10/16/2023 95234 91 RxNorm BESSIE Plummer [place] [facility] [place] 4 08:36:01 Medications Name Sig Start Date [...] ble Not Available Vitals Date Recorded Body height Body mass index (BMI) Body weight Oxygen saturation Oxygen saturation in Arterial blood by Pulse oximetry Heart rate Systolic blood pressure Diastolic blood pressure Provider Name and Address Organization Details Last Updated DateTime 5 152.4 cm 25.5 kg/m2 69910.8 8 g 99 % 99 % 86 /min 118 mm[Hg] 78 mm[Hg] Caitlyn Marquez BESSIE MALONEY [place] [facility] [place] 5 11:09:51 Social History Question Answer Notes LastModified by Organizat ion Details LastModified Time Tobacco Smoking Status Current Every Day Smoker BESSIE Plummer [place] [facility] [place] 10/16/2023 08:36:15 Do You Have An Advance Directive? No Information not available 10/16/2023 What Is Your Level Of Alcohol Consumption? None [email or web address] Information not available 10/16/2023 Are You Blind Or Do You Have Difficulty Seeing? No [email or web address] Information not available 10/16/2023 What Was The Date Of Your Most Recent Tobacco Screening? 10/16/2023 [email or web address] Information not available 10/16/2023 Are You Passively Exposed To Smoke? Yes [email or web address] Information not available 10/16/2023 Do You Or Have You Ever Used Smokeless Tobacco? Never Used Smokeless Tobacco [email or web address] Information not available 10/16/2023 How Much Tobacco Do You Smoke? 1 PPD [email or web address] Information not available 11/14/2023 Do You Feel Stressed (tense, Restless, Nervous, Or Anxious, Or Unable To Sleep At Night)? [id number] [email or web address] Information not available 10/16/2023 Do You Use Any Illicit Or Recreational Drugs? No History Of 14 Years Ago, Documented By Patient In The Legal Word Processor Packet [email or web address] Information not available 11/14/2023 How Many Years Have You Smoked Tobacco? 20 Information not available 10/16/2023 Sex: Unknown Functional Status Question Answer Note LastModified by Organization D etails LastModified Time What is your exercise level? None [email or web address] Information not available 10/16/2023 Mental Status None [...] SNOMED-CT Code Diagnosis ICD10 Code Diagnosis Note [id number] LEONARDO YEUNG NP, S MICHELLE [address] [place] [address] 08/20/2024 11:13:57 08/20/2024 11:50:21 Edema 419324471 R60.9 Dyspnea on exertion 6084 5006 R06.02 Atypical angina 46492212 2 I20.89 Cigarette smoker 6804949 7 F17.210 Mitral adia ve regurgitation 47801902 I34.0 Pulmonic v alve regurgitation 96085267 I37.1 Essential hypertension 71537870 I10 Atrial septal defect 701 71109 Q21.10 [id number] LEONARDO YEUNG NP, S MICHELLE [address] [place] [address] 09/02/2024 10:32:43 09/02/2024 12:10:49 Dyspnea 136617432 R06.02 Edema 153431146 R60.9 Dyspnea on exertion 6084 5006 R06.02 Atypical angina 05494685 2 I20.89 Cigarette smoker 6707368 7 F17.210 Mitral adia ve regurgitation 69423855 I34.0 Pulmonic v alve regurgitation 96754133 I37.1 Essential hypertension 20077371 I10 Atrial septal defect 701 74476 Q21.10 Health Concerns Section Related Observation LastModified by Organization Detai ls LastModified Time None Recorded Concern Status LastModified by Organization Details LastModified Time None Recorded Payers Encounter Date Sequence Insurance Name Policy Number Policy [place] Covered Member ID Lake Member ID Guarantor Name 09/02/2024 1 [facility] (MEDICAID REPLACEMENT - HMO) Chen Mims Paris [id number] Chen Mims [place] Notes Date Note Type Note Provider Name and Address Organization Details Recorded Time 09/02/2024 text/html Chen is a 38-year-old female [...] improved. No other complaints or concerns. LEONARDO YUENG NP, S [address], [place], [address], [facility] - [place] [facility] [place] 09/02/2024 13:17:11 OBGyn Episode No OBEpisode recorded.
--- OUTSIDE RECORDS SUMMARY | 2024-09-04 08:57 | XMS_ITS | Continuity of Care Document ---
Author Organization [place] - [facility] - [place] & [place], [facility] Heart Address [address] [facility] [place] [address] Assessment Encounter Date Assessment Date Assessment LastModified by Organization Details LastModified Time 08/20/2024 08/20/2024 Patient Education was printed, I [...] of 55% to 60%. Mild mitral insufficiency. Kqdz-jk-ebtqqaac pulmonic insufficiency. LAST HEART CATH: 04/2012 revealed [...] activity. - This note was dictated using Interactive Project software. If something is unclear, or does not make sense, please do not hesitate to contact our office at [phone] for clarification. [email or web address] Not available 08/20/2024 12:00:18 Plan of Treatment Reminders Order Date Submit Date Provider Last Modified By Organization Details Last Modified Time Details Appointments OV EST 30 2024 11:00A M LEONARDO YEUNG, BOARD ATTENDANT, S Not available Not available Not available OV EST 30 2024 10:30A M LEONARDO YEUNG, [place], S Not available Not available Not available Lab CBC w/ auto diff 2024 025 [facility] (Registration ), [address], [place], [address], 08/22/2024 10:59:06 CMP, serum or plasma 2024 025 [facility] (Registration ), [address], [place], [address], 08/22/2024 11:41:11 magnesium , serum or plasma 2024 025 [facility] (Registration ), [address], [place], [address], 08/22/2024 11:41:13 lipid panel w/ direct LDL, serum [address] (Registration ), [place], [address], 08/27/2024 08:14:04 Referral None recorded. Procedures None recorded. Surgeries None recorded. Imaging CT, angiogram , coronary arteries, w/wo contrast - Patient doesnt have insurance . Patient is self pay [address] (Scheduling), [address], [place], [address], 08/27/2024 08:13:56 [facility]ca [facility]diogram [facility]25 [email or web address], [address] [place] [address] [address], [place], [address], 08/20/2024 11:49:36 XR, chest, 2 view 2024 025 [email or web address] ([facility] ), [address] [place] [address] [place], [address], 09/03/2024 07:41:32 Medication Orders furosemid e 20 mg tablet 2024 025 [email or web address] [id number], [address] [place] [address] , [place], [address], 08/20/2024 11:49:52 Patient TargetsNo targets recorded. Patient Instructions Encounter Date Encounter Id Patient Instructions Last Modified By Organization Details Last Modified Time 08/20/2024 [id number] smoking cessatio n counseling, greater than 3 minutes up to 10 minutes* [email or web address] Not available 08/27/2024 08:14:11 Reason for Referral None Reported. Results Created Date Observation Date Name Description Value Unit Range Abnormal Flag Note LastModifiedBy Organization Detail LastModifiedTime 08/21/19 elect rocar diogr am No observ ation record ed. [email or web address] [address], [place], [address], 08/20/2024 11:48:35 08/21/19 25 08/20/2024 elect rocar diogr am No observ ation record ed. [email or web address] Not Available 2024 11:35:25 09/03/19 25 elect rocar diogr am No observ ation record ed. CARYN [address], [place], [address], 09/02/2024 11:18:03 09/03/19 25 09/02/2024 rafaela galvan am No observ ation record ed. [email or web address] Not Available 2024 13:16:42 Result Notes None recorded. Problems Name Problem SNOMED Code Status Onset Date Resolution Date Notes Provider Name and Address Organization Details Recorded Time Mitral valve regurgitation 01697106 Active 2023 LEONARDO YEUNG NP, [address], [place], [address], [place] - [facility] - [place] [facility] [place] 4 12:04:36 Pulmonic valve regurgitation 15540309 Active 2023 LEONARDO YEUNG NP, [address], [place], [address], [place] - [facility] - [place] [facility] [place] 4 12:04:37 Problem Notes None recorded. Procedures Surgical History Date Name Laterality Status Provider Name and Address Organization Details Recorded Time Abdominal Surgery completed Jimena [place] - [facility] - [place] & [place] 10/16/2023 08:36:18 open heart surgery completed Lewis MALONEY - [place] & [place] 11/14/2023 15:32:28 Knee arthroscopy/reji naveen completed Lewis LA - LPCASI - [place] & [place] 11/14/2023 15:32:39 delivery completed Lewis LA - HAIDER - [place] & [place] 11/14/2023 15:33:37 Imaging Results Imaging Date Name Status LastModified by Organization Details LastModified Time 08/20/2024 electrocardiogram completed [email or web address] Mv [address], [place], [address], 08/20/2024 11:48:35 Procedure Notes None recorded. Medical Equipment None Reported. Allergies Allergen ID Allergen Name Allergen Category Reaction Reaction Severity Criticality Documentation Date Start Date Code Code System Note Provider Name and Address Organization Details Recorded Time 285101 latex environme nt,medica tion Not available Not available Not available 10/16/2023 63924 91 RxNorm Jimena Wood null, [facility] & [place] 4 08:36:01 Medications Name Sig Start Date [...] Updated DateTime 5 152.4 cm 26.6 kg/m2 98587.2 8 g 99 % 99 % 69 /min 116 mm[Hg] 64 mm[Hg] Caitlyn Marquez [facility] & [place] 5 11:22:18 Social History Question Answer Notes LastModified by Organizat ion Details LastModified Time Tobacco Smoking Status Current Every Day Smoker Jimena Wood anai, [facility] & [place] 10/16/2023 08:36:15 Do You Have An Advance Directive? No Information not available 10/16/2023 What Is Your Level Of Alcohol Consumption? None [email or web address] Information not available 10/16/2023 Are You Blind Or Do You Have Difficulty Seeing? No [email or web address] Information not available 10/16/2023 What Was The Date Of Your Most Recent Tobacco Screening? 10/16/2023 Information not available 10/16/2023 Are You Passively Exposed To Smoke? Yes [email or web address] Information not available 10/16/2023 Do You Or Have You Ever Used Smokeless Tobacco? Never Used Smokeless Tobacco [email or web address] Information not available 10/16/2023 How Much Tobacco Do You Smoke? 1 PPD Information not available 11/14/2023 Do You Feel Stressed (tense, Restless, Nervous, Or Anxious, Or Unable To Sleep At Night)? [id number] [email or web address] Information not available 10/16/2023 Do You Use Any Illicit Or Recreational Drugs? No History Of 14 Years Ago, Documented By Patient In The Branch Director Packet [email or web address] Information not available 11/14/2023 How Many Years Have You Smoked Tobacco? 20 [email or web address] Information not available 10/16/2023 Sex: Unknown Functional Status Question Answer Note LastModified by Organization D etails LastModified Time What is your exercise level? None [email or web address] Information not available 10/16/2023 Mental Status None [...] SNOMED-CT Code Diagnosis ICD10 Code Diagnosis Note [id number] LEONARDO YEUNG NP, S MV [address] [address] 08/20/2024 11:13:57 08/20/2024 11:50:21 Edema 850069639 R60.9 Dyspnea on exertion 6084 5006 R06.02 Atypical angina 03480181 2 I20.89 Cigarette smoker 6553695 7 F17.210 Mitral adia ve regurgitation 22732511 I34.0 Pulmonic v alve regurgitation 35100549 I37.1 Essential hypertension 90431001 I10 Atrial septal defect 701 [address]407 Q21.10 Health Concerns Section Related Observation LastModified by Organization Detai ls LastModified Time None Recorded Concern Status LastModified by Organization Details LastModified Time None Recorded Payers Encounter Date Sequence Insurance Name Policy Number Policy [place] Covered Member ID Lake Member ID Guarantor Name 08/20/2024 1 *SELF PAY* Sa hali [place] Notes Date Note Type Note Provider Name and Address Organization Details Recorded Time 08/20/2024 text/html Chen is a 38-year-old female [...] or concerns. LEONARDO YEUNG NP, S [address] [facility],[address], [place], [address], [facility] - [place] - [place] 08/20/2024 12:00:57 OBGyn Episode No OBEpisode recorded.
[2024-09-04 09:14] VITALS: BMI 25.4
[2024-09-04 09:40] VITALS: BP 119/89; PULSE 78; RESP 18; TEMP 36.6; O2SAT 99
[2024-09-04 09:42] LABS: Anion Gap 8.9 mEq/L (5-15); Blood Urea Nitrogen 18 mg/dl (7-17); Calcium 9.1 mg/dl (8.4-10.2); Carbon Dioxide 23 mmol/L (22.0-30.0); Chloride 111 mmol/L (98-107); Creatinine Clearance Estimated 120 mL/min (50-200); Estimated Glomerular Filt Rate 112 ml/min (>60); GFR (African American) 136 ML/MIN (>60); Glucose 95 mg/dl (74-100); Potassium 3.9 mmoL/L (3.5-5.1); Sodium 139 mmol/L (136-145)
[2024-09-04] MEDS: IVABRADINE HCL 7.5MG TABLET PO (09:50)
[2024-09-04] MEDS: METOPROLOL TARTRATE 50MG TABLET PO ×2 (09:51→10:19)
[2024-09-04 10:42] VITALS: BP 119/49; PULSE 69; RESP 16; O2SAT 100
[2024-09-04] MEDS: NITROGLYCERIN 0.4MG SL TABLET SL (10:42)
[2024-09-04 10:45] VITALS: BP 114/71; PULSE 63; RESP 16; O2SAT 100
[2024-09-04] MEDS: 0.9 % SODIUM CHLORIDE 50 ML VIAL IV (10:53)
[2024-09-04] MEDS: SODIUM CHLORIDE 0.9% 10ML SYR (RAD ONLY) 10 ML IV (10:53)
[2024-09-04] MEDS: IOPAMIDOL-370 (76%);100ML BOTTLE 85 ML IV (10:54)
== END 2024-09-04 11:05 | disposition home or self-care (01) ==
PROVIDERS: PCP Registered Nurse; Visit Provider Registered Nurse
DX: I20.89 Other forms of angina pectoris (principal)
CPT/HCPCS: 75574; 80048; Q9967